=== PATIENT | female | born 1980 | race Caucasian/White ===

== ENCOUNTER 2020-07-27 14:02 | Emergency (ER) | payer OTHER ==
[~2020-07-27] VITALS: Ht 160 cm; Wt 83.9 kg
[2020-07-27] MEDS ORDERED: DOXYCYCLINE100 M3 PO (15:32)
[2020-07-28] MEDS ORDERED: EFFEXOR XR150 M1 PO (10:30)
[2020-07-28] MEDS ORDERED: OXCARBAZEPINE300 M1 PO (10:33)
[2020-07-28] MEDS ORDERED: CLEOCIN HCL150 MG PO (13:22)
== END 2020-07-27 15:40 | disposition home or self-care (01) ==
LOC: ED 14:02
DX: L02.415 Cutaneous abscess of right lower limb (principal)

== ENCOUNTER 2020-07-28 10:18 | Emergency (ER) | payer OTHER ==
[~2020-07-28] VITALS: Wt 83.9 kg
[~2020-07-28 10:18] MED LIST: DOXYCYCLINE100 M3 PO
[2020-07-28] MEDS ORDERED: EFFEXOR XR150 M1 PO (10:30)
[2020-07-28] MEDS ORDERED: OXCARBAZEPINE300 M1 PO (10:33)
[2020-07-28 10:52] LABS: BASO % 0.2 % (0.0-1.0); LYMPH # 2.1 10*3/uL (1.3-4.4); LYMPH % 16.9 % (27.0-41.0); MEAN CELL VOLUME 89.7 fl (81.0-99.0); MEAN CORPUSCULAR HGB 29.4 pg (27.0-31.0); MEAN CORPUSCULAR HGB CONC 32.8 g/dl (33.0-37.0); MEAN PLATELET VOLUME 10.1 fl (9.6-12.3); MONO # 0.8 10*3/uL (0.1-1.0); MONO % 6.1 % (3.0-9.0); NEUT # 9.6 10*3/uL (2.3-7.9); PLATELET COUNT AUTOMATED 291 10*3/uL (130-400); RED BLOOD COUNT 4.46 10*6/uL (4.10-5.10); WHITE BLOOD COUNT 12.7 10*3/uL (4.8-10.8)
[2020-07-28 11:07] LABS: ALBUMIN 3.4 gm/dl (3.1-4.5); ALKALINE PHOSPHATASE 76 U/L (45-117); BUN 10 mg/dl (7-24); CHLORIDE 104 mmol/L (98-107); CREATININE 0.48 mg/dL (0.55-1.02); LIPASE 72 U/L (73-393); POTASSIUM 4.1 mmol/L (3.5-5.1); SGOT/AST 7 IU/L (3-35); SGPT/ALT 21 U/L (12-78); SODIUM 137 mmol/L (136-145); TOTAL PROTEIN 6.5 gm/dL (6.4-8.2)
[2020-07-28 11:19] LABS: BETA-HCG, QUANT < 1.0 mIU/mL (1-3)
[2020-07-28] MEDS ORDERED: CLEOCIN HCL150 MG PO (13:22)
== END 2020-07-28 13:56 | disposition home or self-care (01) ==
LOC: ED 10:18
PROVIDERS: Emergency Medicine
DX: G43.909 Migraine, unspecified, not intractable, without status migrainosus (principal); L02.415 Cutaneous abscess of right lower limb; Z79.899 Other long term (current) drug therapy

== ENCOUNTER 2020-08-07 11:50 | Emergency (ER) | payer OTHER ==
[~2020-08-07] VITALS: Ht 157.4 cm; Wt 83.9 kg
[~2020-08-07 11:50] MED LIST changes: +CLEOCIN HCL150 MG PO; +EFFEXOR XR150 M1 PO; +OXCARBAZEPINE300 M1 PO
[2020-08-07] MEDS ORDERED: MEDROL DOSEPAK4 MG PO (12:15)
== END 2020-08-07 12:21 | disposition home or self-care (01) ==
LOC: ED 11:50
DX: M54.12 Radiculopathy, cervical region (principal); Z79.899 Other long term (current) drug therapy